=== PATIENT | male | born 1990 | race Caucasian/White ===

== ENCOUNTER 2020-08-21 12:59 | Outpatient (REF) | payer OTHER, SELFPAY ==
[2020-08-21 13:31] LABS: Eosinophils Percent Auto 0.7 % (0-4); Hematocrit 43.1 % (42-52); Hemoglobin 14.4 g/dl (14.0-18.0); Imm Gran Abs Auto 0.01 X10*3/uL (0.00-0.03); Imm Gran Pct Auto 0.4 % (0.0-0.4); Lymphocytes Absolute Auto 0.6 X10*3/uL (1.2-4.9); MANUAL DIFF FLAG SCAN; Mean Corpuscular HGB Conc 33.4 g/dl (31.0-36.0); Mean Corpuscular Hemoglobin 31.4 pg (27.0-33.0); Mean Corpuscular Volume 93.9 fL (80-98); Mean Platelet Volume 9.9 fL (9.4-12.4); Monocytes Absolute Auto 0.2 X10*3/uL (0.1-1.2); Monocytes Percent Auto 7.1 % (2-11); Neutrophils Absolute Auto 1.9 X10*3/uL (2.0-8.3); Neutrophils Percent Auto 69.8 % (45-73); Platelet Count 208 X10*3/uL (160-400); Red Blood Count 4.59 X10*6/uL (4.60-5.80); Red Cell Distribution Width 11.9 % (11.0-16.0); SCAN SMEAR FLAG 1; White Blood Count 2.7 X10*3/uL (4.8-10.8)
[2020-08-21 14:02] LABS: Alanine Aminotransferase 12 U/L (0-40); Albumin Level 4.8 g/dL (3.5-5.0); Alkaline Phosphatase 61 U/L (39-117); Anion Gap 10 (12-20); Aspartate Amino Transferase 16 U/L (5-37); Bilirubin Total 0.7 mg/dL (0.0-1.0); Blood Urea Nitrogen 11 mg/dL (9-16); Calcium 9.5 mg/dL (8.4-10.2); Carbon Dioxide 29 mmol/L (22-29); Chloride 105 mmol/L (96-108); Cholesterol 165 mg/dL; Estimated Glomerular Filt Rate > 60; Glucose Random 91 mg/dL (60-115); HDL Cholesterol 50 mg/dL; LDL Cholesterol Calculated 108 mg/dl; Potassium 4.4 mmol/l (3.3-5.1); Sodium 140 mmol/L (135-145); Total Protein 7.3 g/dL (6.5-8.0); Triglycerides 39 mg/dL
[2020-08-21 14:09] LABS: SLIDE REVIEW VERIFIED
== END 2020-08-21 13:00 | disposition home or self-care (01) ==
LOC: HO.LAB 12:59
PROVIDERS: PCP Internal Medicine; Visit Provider Internal Medicine
DX: Z00.00 Encounter for general adult medical examination without abnormal findings (principal); Z13.31 Encounter for screening for depression; F90.9 Attention-deficit hyperactivity disorder, unspecified type
CPT/HCPCS: 36415; 80053; 80061; 85025

== ENCOUNTER 2021-11-08 18:03 | Outpatient (REF) | payer OTHER, SELFPAY ==
[2021-11-08 18:52] LABS: Influenza A PCR NEGATIVE (Negative); Influenza B PCR NEGATIVE (Negative); Resp Syncy Virus RNA Qual PCR NEGATIVE (Negative); SARS COV2 PCR INHOUSE POSITIVE (Negative)
== END 2021-11-08 18:04 | disposition home or self-care (01) ==
LOC: HO.LNP 18:03
PROVIDERS: Visit Provider Physician Assistant
DX: B34.9 Viral infection, unspecified (principal); R76.8 Other specified abnormal immunological findings in serum; Z20.822 Contact with and (suspected) exposure to COVID-19
CPT/HCPCS: 0241U

== ENCOUNTER 2022-05-10 12:02 | Outpatient (REF) | payer OTHER, SELFPAY ==
[2022-05-10 12:14] LABS: MANUAL DIFF FLAG NO
[2022-05-10 13:06] LABS: Basophils Percent Auto 0.4 % (0-2); Eosinophils Absolute Auto 0.1 X10*3/uL (0.0-0.4); Eosinophils Percent Auto 1.8 % (0-4); Hematocrit 41.6 % (42.0-52.0); Imm Gran Abs Auto 0.01 X10*3/uL (0.00-0.03); Imm Gran Pct Auto 0.4 % (0.0-0.4); Mean Corpuscular HGB Conc 33.7 g/dl (31.0-36.0); Mean Corpuscular Hemoglobin 31.7 pg (27.0-33.0); Mean Corpuscular Volume 94.1 fL (80.0-98.0); Mean Platelet Volume 10.2 fL (9.4-12.4); Monocytes Absolute Auto 0.3 X10*3/uL (0.1-1.2); Monocytes Percent Auto 9.6 % (2-11); Neutrophils Absolute Auto 1.4 x10*3/uL (2.0-8.3); Neutrophils Percent Auto 50.8 % (45-73); Platelet Count 200 X10*3/uL (160-400); Red Blood Count 4.42 X10*6/uL (4.60-5.80); White Blood Count 2.8 X10*3/uL (4.8-10.8)
[2022-05-10 14:11] LABS: Thyroid Stimulating Hormone 1.35 uIU/mL (0.32-4.0)
[2022-05-10 14:42] LABS: Alanine Aminotransferase 17 U/L (0-40); Albumin Level 4.7 g/dL (3.5-5.0); Alkaline Phosphatase 59 U/L (39-117); Anion Gap 11 (12-20); Aspartate Amino Transferase 20 U/L (5-37); Bilirubin Total 0.8 mg/dL (0.0-1.0); Blood Urea Nitrogen 14 mg/dL (9-16); Calcium 9.7 mg/dL (8.4-10.2); Carbon Dioxide 28 mmol/L (22-29); Chloride 105 mmol/L (96-108); Cholesterol 162 mg/dL; Estimated Glomerular Filt Rate > 60; Glucose Random 94 mg/dL (60-115); HDL Cholesterol 55 mg/dL; LDL Cholesterol Calculated 101 mg/dl; Potassium 4.6 mmol/L (3.3-5.1); Sodium 139 mmol/L (135-145); Total Protein 7.2 g/dL (6.5-8.0); Triglycerides 33 mg/dL
== END 2022-05-10 12:03 | disposition home or self-care (01) ==
LOC: HO.LAB 12:02
PROVIDERS: PCP Internal Medicine; Visit Provider Internal Medicine
DX: B07.0 Plantar wart (principal); F90.9 Attention-deficit hyperactivity disorder, unspecified type; L84 Corns and callosities
CPT/HCPCS: 36415; 80053; 80061; 84443; 85025

== ENCOUNTER 2023-09-19 15:31 | Outpatient (REF) | payer OTHER, SELFPAY ==
[2023-09-19 15:46] LABS: MANUAL DIFF FLAG NO
[2023-09-19 16:07] LABS: Eosinophils Percent Auto 1.3 % (0-4); Hematocrit 41.2 % (42.0-52.0); Imm Gran Abs Auto 0.01 X10*3/uL (0.00-0.03); Imm Gran Pct Auto 0.3 % (0.0-0.4); Lymphocytes Absolute Auto 0.8 X10*3/uL (1.2-4.9); Lymphocytes Percent Auto 27.3 % (20-40); Mean Corpuscular Hemoglobin 31.6 pg (27.0-33.0); Mean Platelet Volume 10.1 fL (9.4-12.4); Monocytes Absolute Auto 0.2 X10*3/uL (0.1-1.2); Monocytes Percent Auto 7.5 % (2-11); Neutrophils Percent Auto 63.6 % (45-73); Platelet Count 220 X10*3/uL (160-400); Red Blood Count 4.43 X10*6/uL (4.60-5.80); Red Cell Distribution Width 11.9 % (11.0-16.0); White Blood Count 3.1 X10*3/uL (4.8-10.8)
[2023-09-19 16:38] LABS: Alanine Aminotransferase 24 U/L (0-40); Albumin Level 4.7 g/dL (3.5-5.0); Alkaline Phosphatase 62 U/L (39-117); Anion Gap 14 (12-20); Aspartate Amino Transferase 25 U/L (5-37); Bilirubin Total 0.6 mg/dL (0.0-1.0); Blood Urea Nitrogen 11 mg/dL (9-16); Calcium 9.7 mg/dL (8.4-10.2); Carbon Dioxide 26 mmol/L (22-29); Chloride 105 mmol/L (96-108); Estimated Glomerular Filt Rate > 60; Glucose Random 73 mg/dL (60-115); Potassium 3.7 mmol/L (3.3-5.1); Sodium 141 mmol/L (135-145); Total Protein 7.5 g/dL (6.5-8.0)
== END 2023-09-19 15:32 | disposition home or self-care (01) ==
LOC: HO.LAB 15:31
PROVIDERS: PCP Internal Medicine; Visit Provider Internal Medicine
DX: F90.9 Attention-deficit hyperactivity disorder, unspecified type (principal); Z20.2 Contact with and (suspected) exposure to infections with a predominantly sexual mode of transmission
CPT/HCPCS: 36415; 80053; 85025

== ENCOUNTER 2024-04-22 13:56 | Outpatient (AMB) | payer OTHER, SELFPAY ==
--- NOTE | 2024-04-22 14:02 | MHC.PC.OV ---
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 Transferring care from Dr Pereira ([address] Medical records have not been requested and have not received. Junior Legal Secretary Required: No International Trade Specialist: Not Required per policy Accompanied by: Self / Same As Patient Allergies dog and cat Allergy (Mild, Uncoded 04/22/24 14:42) sneezing, iitdching skin seasonal Allergy (Unknown, Uncoded 04/22/24 14:42) watery eyes, sneezing. 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 HPI Details Patient comes in today to establish care States that he has been on Vyvanse for ADHD since he was 21 or 22 y/o (about 12 years ago) - sees neurology/psychiatry for management of his ADHD Also relates (+) occasional migraine headaches States that he gets a migraine headache about once a year and that his vision would sometime black out for about 30 seconds when he has a migraine attack - relates that this last occurred about 3 years ago He has been seen by neurology for his headaches in the past and was just advised to track the frequency and occurrence of his symptoms and he will continue to follow up with neurology accordingly Patient states that he feels okay otherwise He denies any dizziness and reports no headaches recently Denies any chest pains, no SOB No nausea/vomiting, no abdominal pain No change in bowel habits noted [facility] Medical History (Updated 07/04/24 @ 08:53 by Feliz Caro MD) Migraine Seasonal allergies Attention deficit hyperactivity disorder (ADHD) Surgical History No pertinent past surgical history Family History Other Mental health disorder Substance use disorder Social History Housing: House Alcohol intake: current Alcohol intake frequency: a few times a month Patient Tobacco Use Status: Never used Tobacco e-Cigarette/Vaping Use: Never Used Second Hand Smoke Exposure: No service: No Current occupational status: employed 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 1. Little interest or pleasure in doing things: not at all 2. Feeling down, depressed, or hopeless: not at all 3. Trouble falling or staying asleep, or sleeping too much: not at all 4. Feeling tired or having little energy: not at all 5. Poor appetite or overeating: not at all 6. Feeling bad about yourself - or that you are a failure or have let yourself or your family down: not at all 7. Trouble concentrating on things, such as reading the newspaper or watching television: not at all 8. Moving or speaking so slowly that other people could have noticed. Or the opposite - being so fidgety or restless that you have been moving around a lot more than usual: not at all 9. Thoughts that you would be better off or of hurting yourself in some way: not at all Total score: 0 Depression Screening Interpretation: Negative Depression Screening Done: Yes 06767 - PHQ-9 Billing: Yes Source: Developed by Drs. Cole Klein, Gela Castro, Sandro Aparicio and colleagues, with an educational shweta from [employer] Thrive Questionnaire Date Thrive assessed: 04/22/24 I am a: Patient What is your living situation today?: I have a steady place to live Within the past 12 months, did the food you bought not last and you didn't have the money to get more?: Never true Within the past 12 months, did you worry whether your food would run out before you got money to buy more?: Never true Do you have trouble paying for medicines?: No Do you have trouble getting transportation to medical appointments?: No Do you have trouble paying your heating and electricity bill?: No Do you have trouble taking care of your child, family member or friend?: No Do you have trouble with day-to-day activities such as bathing, preparing meals, shopping, managing finances, etc.?: No Are you currently unemployed and looking for a job?: No Are you interested in more education?: No Currently or been in a relationship where the following occur: no concerns reported THRIVE Score: 0 AUDIT C Alcohol Use Questionnaire (AUDIT-C) 1. How often do you have a drink containing alcohol?: Monthly or less 2. How many drinks containing alcohol do you have on a typical day when you are drinking?: 1 or 2 3. How often do you have six or more drinks on one occasion?: Never Total Score: 1 Score Reviewed/Action Taken: Yes KHURRAM-7 AMB Questionnaire KHURRAM-7 Date KHURRAM - 7 assessed: 04/22/24 Feeling nervous, anxious, or on edge: 0 = Not at all Not being able to stop or control worryin = Not at all Worrying too much about different things: 0 = Not at all Trouble relaxin = Not at all Being so restless that it is hard to sit still: 0 = Not at all Becoming easily annoyed or irritable: 0 = Not at all Feeling afraid as if something awful might happen: 0 = Not at all Total KHURRAM-7 score (0-4 normal; 5-9 mild; 10-14 moderate; 15-21 severe): 0 Source: Developed by Drs. Cole Klein, Gela Castro, Sandro Aparicio and colleagues, with an educational shweta from [employer] Review of Systems Const Denies chills, Denies fever(s), Denies headache(s) (none recently) and Denies malaise ENT Denies dysphagia, Denies dizziness, Denies otalgia, Denies headache(s) (none recently), Denies neck pain, Denies odynophagia and Denies sore throat Card Denies chest pain, Denies irregular heart rhythm and Denies dyspnea Resp Denies cough, Denies dyspnea and Denies wheezing GI Denies abdominal pain, Denies change in bowel habits, Denies dysphagia, Denies nausea, Denies odynophagia and Denies vomiting Denies dysuria, Denies nocturia and Denies urinary frequency Musc Denies back pain and Denies neck pain Skin/Breast Denies rash Neuro Denies dizziness and Denies headache(s) (none recently) Psych Denies anxiety and Denies depression Aller/Immun Denies wheezing Physical exam (Primary Care) Vital Signs: Last Vital Signs Pulse 91 04/22/24 14:05 BP 132/60 04/22/24 14:05 Pulse Ox 97 04/22/24 14:05 Oxygen Delivery Method Room Air 04/22/24 14:05 BMI result Body Mass Index 26.2 Tobacco/Smoking Status: Tobacco use Status Tobacco use date assessed 04/22/24 04/22/24 14:13 Patient Tobacco Use Status Never used Tobacco 04/22/24 14:13 e-Cigarette/Vaping Use Never Used 04/22/24 14:13 PHQ-9: PHQ-9 Score PHQ-9: Total score 0 04/22/24 14:54 Depression Screening Interpretation: Negative Thrive Assessment: Date of Thrive Assessment Date Thrive assessed 04/22/24 04/22/24 14:13 Currently or been in a relationship where the following occur: no concerns reported Const General: no acute distress and alert HENMT Ears: TM's normal bilaterally and EAC's normal Throat: Yes posterior oropharynx normal and Yes tonsils normal (no TP congestion) Neck Neck: Yes no lymphadenopathy and Yes supple Resp Auscultation: clear to auscultation bilaterally, no rales and no wheezes Cardio Rate: regular rate Rhythm: regular rhythm Heart sounds: no murmurs GI Palpation (GI): Soft to palpation and nontender Auscultation: normal bowel sounds General: Yes no CVA tenderness Back/Spine/Pelvis Back: no CVA tenderness Skin Rashes: no rashes Extrem General: Yes no clubbing, cyanosis or edema Assessment and Plan Assessment & Plan (1) Migraine: Code(s): G43.909 - Migraine, unspecified, not intractable, without status migrainosus Qualifiers: Migraine type: unspecified Status migrainosus presence: without status migrainosus Intractability: not intractable Qualified Code(s): G43.909 - Migraine, unspecified, not intractable, without status migrainosus Plan: Stable lately Reinforced avoidance of any potential migraine triggers Follow up with neurology as scheduled (2) Seasonal allergies: Code(s): J30.2 - Other seasonal allergic rhinitis Plan: Continue Cetirizine 10 mg QD PRN and Aller-Karlo nasal spray BID PRN (3) Attention deficit hyperactivity disorder (ADHD): Code(s): F90.9 - Attention-deficit hyperactivity disorder, unspecified type Qualifiers: Attention deficit-hyperactivity disorder type: unspecified Qualified Code(s): F90.9 - Attention-deficit hyperactivity disorder, unspecified type Plan: Continue Vyvanse 40 mg QD Follow up with neurology/psychiatry as scheduled Plan To return in 4 months for his annual physical examination Coding Level of Care Code New Pt Level 3 (50609) Diagnoses Migraine without status migrainosus, not intractable, unspecified migraine type G43.909 Migraine type: unspecified Status migrainosus presence: without status migrainosus Intractability: not intractable Seasonal allergies J30.2 Attention deficit hyperactivity disorder (ADHD), unspecified ADHD type F90.9 Attention deficit-hyperactivity disorder type: unspecified
[2024-04-22 14:05] VITALS: BP 132/60; PULSE 91; O2SAT 97; BMI 26.2
== END 2024-04-22 14:58 | disposition home or self-care (01) ==
LOC: HO.HMGH 13:56
PROVIDERS: PCP Internal Medicine; Visit Provider Internal Medicine
DX: G43.909 Migraine, unspecified, not intractable, without status migrainosus (principal); J30.2 Other seasonal allergic rhinitis; F90.9 Attention-deficit hyperactivity disorder, unspecified type
CPT/HCPCS: 99203

== ENCOUNTER 2024-08-26 15:43 | Outpatient (AMB) | payer OTHER, SELFPAY ==
[2024-08-26 15:47] VITALS: BP 130/70; PULSE 100; O2SAT 98; BMI 26.8
--- NOTE | 2024-08-26 15:47 | MHC.PC.OV ---
Vital Signs 08/26/24 15:47 Height 5 ft 11 in Weight 192 lb 2 oz BMI 26.8 BP 130/70 Blood Pressure Location Lt brachial Position Sitting Pulse 100 Pulse Source Pulse Oximeter Pulse Oximetry (%) 98 Oxygen Delivery Method Room Air Intake Visit Reasons: pe Accompanied by: Self / Same As Patient Allergies dog and cat Allergy (Mild, Uncoded 08/26/24 16:29) sneezing, iitdching skin seasonal Allergy (Unknown, Uncoded 08/26/24 16:29) watery eyes, sneezing. Medication List - Last Reconciled 08/26/24 by Feliz Caro MD cetirizine (Zyrtec) 10 mg PO DAILY PRN lisdexamfetamine (Vyvanse) 40 mg PO DAILY 30 days triamcinolone acetonide (Aller-Karlo) 1 spray intranasal BID Tobacco use date assessed: 08/26/24 Dental Screening Dental Screen Date: 08/26/24 Did you have a dental visit in the last 12 months?: Yes Did you have a dental problem in the last 6 months where you did not have access to dental care?: No Was dental information given to patient?: Patient has dentist HPI pe HPI Details Patient comes in today for his annual physical examination States that he feels okay He denies any headaches or dizziness Denies any chest pains, no SOB No nausea/vomiting, no abdominal pain No change in bowel habits noted but reports that he has been experiencing recurrent flare up of his hemorrhoids over the past few weeks now and sometimes feel like there is a tear over one of his hemorrhoids, with (+) pain and some blood in his stool at times He denies any acute urinary symptoms Adds that he has several skin lesions/moles and has a couple of slightly larger ones on the back of his neck - states that these have not really changed in size or appearance but is wondering if he should get these checked due to him having a number of these scattered all over He would also like to get his tetanus booster updated - thinks that it has been over 10 years now since he had his tetanus shot [facility] Medical History Overweight (BMI 25.0-29.9) Migraine Seasonal allergies Attention deficit hyperactivity disorder (ADHD) Surgical History No pertinent past surgical history Family History Other Mental health disorder Substance use disorder Social History Housing: House Alcohol intake: current Alcohol intake frequency: a few times a month Patient Tobacco Use Status: Never used Tobacco e-Cigarette/Vaping Use: Never Used Second Hand Smoke Exposure: No service: No Current occupational status: employed 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 1. Little interest or pleasure in doing things: not at all 2. Feeling down, depressed, or hopeless: not at all 3. Trouble falling or staying asleep, or sleeping too much: not at all 4. Feeling tired or having little energy: several days 5. Poor appetite or overeating: not at all 6. Feeling bad about yourself - or that you are a failure or have let yourself or your family down: not at all 7. Trouble concentrating on things, such as reading the newspaper or watching television: not at all 8. Moving or speaking so slowly that other people could have noticed. Or the opposite - being so fidgety or restless that you have been moving around a lot more than usual: not at all 9. Thoughts that you would be better off or of hurting yourself in some way: not at all Total score: 1 Depression Screening Interpretation: Negative Depression Screening Done: Yes 15306 - PHQ-9 Billing: Yes Source: Developed by Drs. Cole Klein, Gela Castro, Sandro Aparicio and colleagues, with an educational shweta from [employer]. Thrive Questionnaire Date Thrive assessed: 08/26/24 I am a: Patient What is your living situation today?: I have a steady place to live Within the past 12 months, did the food you bought not last and you didn't have the money to get more?: Never true Within the past 12 months, did you worry whether your food would run out before you got money to buy more?: Never true Do you have trouble paying for medicines?: No Do you have trouble getting transportation to medical appointments?: No Do you have trouble paying your heating and electricity bill?: No Do you have trouble taking care of your child, family member or friend?: No Do you have trouble with day-to-day activities such as bathing, preparing meals, shopping, managing finances, etc.?: No Are you currently unemployed and looking for a job?: No Are you interested in more education?: No Please select the resources that you would like help with: None Currently or been in a relationship where the following occur: No concerns reported THRIVE Score: 0 AUDIT C Alcohol Use Questionnaire (AUDIT-C) 1. How often do you have a drink containing alcohol?: Monthly or less 2. How many drinks containing alcohol do you have on a typical day when you are drinking?: 1 or 2 3. How often do you have six or more drinks on one occasion?: Never Total Score: 1 Score Reviewed/Action Taken: Yes KHURRAM-7 AMB Questionnaire KHURRAM-7 Date KHURRAM - 7 assessed: 08/26/24 Feeling nervous, anxious, or on edge: 1 = Several days Not being able to stop or control worryin = Not at all Worrying too much about different things: 0 = Not at all Trouble relaxin = Not at all Being so restless that it is hard to sit still: 0 = Not at all Becoming easily annoyed or irritable: 0 = Not at all Feeling afraid as if something awful might happen: 0 = Not at all Total KHURRAM-7 score (0-4 normal; 5-9 mild; 10-14 moderate; 15-21 severe): 1 Source: Developed by Drs. Cole Klein, Gela Castro, Sandro Aparicio and colleagues, with an educational shweta from [employer]. Review of Systems Const Denies chills, Denies fatigue, Denies fever(s), Denies headache(s), Denies malaise and Denies weakness Eyes Denies blurry vision, Denies change in vision, Denies irritation and Denies itchy eyes ENT Denies dysphagia, Denies dizziness, Denies otalgia, Denies headache(s), Denies nasal congestion, Denies neck pain, Denies odynophagia and Denies sore throat Card Denies chest pain, Denies rapid heart rate, Denies irregular heart rhythm, Denies palpitations and Denies dyspnea Resp Denies chest congestion, Denies cough, Denies dyspnea and Denies wheezing GI Details: (+) recurrent flare ups of his hemorrhoids lately - see HPI Denies abdominal pain, Denies bloating, Reports hematochezia (at times, when his hemorrhoids flare up), Denies change in bowel habits, Denies change in stool character, Denies constipation, Denies dysphagia, Denies heartburn, Denies diarrhea, Denies nausea, Denies odynophagia and Denies vomiting Denies hematuria, Denies difficulty urinating, Denies dysuria, Denies urinary frequency and Denies urinary urgency Musc Denies back pain, Denies arthralgias, Denies joint swelling, Denies muscle weakness and Denies neck pain Skin/Breast Denies change in pigmentation, Reports lesions ((+) multiple skin lesions/moles - see HPI), Denies rash and Denies unusual bruising Neuro Denies dizziness, Denies headache(s), Denies paresthesias and Denies weakness Psych Denies difficulty concentrating (Rx helps a lot) Endo Denies fatigue and Denies palpitations Aller/Immun Denies itchy eyes and Denies wheezing Physical exam (Primary Care) Vital Signs: Last Vital Signs Pulse 100 08/26/24 15:47 BP 130/70 08/26/24 15:47 Pulse Ox 98 08/26/24 15:47 Oxygen Delivery Method Room Air 08/26/24 15:47 BMI result Body Mass Index 26.8 Tobacco/Smoking Status: Tobacco use Status Tobacco use date assessed 08/26/24 08/26/24 15:51 Patient Tobacco Use Status Never used Tobacco 08/26/24 15:51 e-Cigarette/Vaping Use Never Used 08/26/24 15:51 PHQ-9: PHQ-9 Score PHQ-9: Total score 1 08/26/24 16:37 Depression Screening Interpretation: Negative Thrive Assessment: Date of Thrive Assessment Date Thrive assessed 08/26/24 08/26/24 15:51 Currently or been in a relationship where the following occur: No concerns reported Const General: no acute distress, alert and awake Orientation/consciousness: patient oriented x3 HENMT Head: Yes normocephalic and Yes atraumatic Ears: external ears normal, TM's normal bilaterally and EAC's normal General nose exam: No nasal discharge present Face and sinus: Yes normal facial exam and Yes sinuses nontender Teeth and gingiva: dentition normal Throat: Yes posterior oropharynx normal and Yes tonsils normal (no TP congestion) Eyes Eyelids: Yes eyelids normal Conjunctivae: conjunctivae normal Pupils: Equal, round and reactive pupils present EOM: EOMs intact bilaterally Neck Neck: Yes no lymphadenopathy and Yes supple Thyroid: Thyroid normal Resp Auscultation: clear to auscultation bilaterally, no rales and no wheezes Cardio Rate: regular rate Rhythm: regular rhythm Heart sounds: no murmurs GI Palpation (GI): Soft to palpation, nontender and No hepatosplenomegaly present Auscultation: normal bowel sounds General: Yes no CVA tenderness Back/Spine/Pelvis Back: no CVA tenderness Thoracic/Lumbar Spine: thoracic and lumbar spine normal to inspection Skin Other: (+) scattered multiple small flat hyperpigmented lesions/moles, with no concerning features at present Rashes: no rashes Neuro General: patient oriented x3, moves all extremities, no focal motor deficits and CN's II-XI intact bilaterally Cranial nerves: Yes Equal, round and reactive pupils present Cognition (Neuro): normal cognition Gait exam (Neuro): Normal gait present Extrem General: Yes no clubbing, cyanosis or edema Office Procedures Flu Questionnaire Does the patient have a severe egg allergy?: No Immunizations Fluarix Triv [id number] (PF) 45 mcg (15 mcg x 3)/0.5 mL IM syringe Performing Provider: Feliz Caro MD Performing Location: [facility] Documented (not given) by: CLAUDIA Obregon on 08/26/24 16:38 Reason Not Given: Patient Refused tetanus-diphtheria toxoids-Td 2 Lf unit-2 Lf unit/0.5 mL IM suspension Performing Provider: Feliz Caro MD Performing Location: [facility] Administered by: CLAUDIA Obregon on 08/26/24 16:52 Dose Route Admin Location Dispensed Lot Number Expiration Date [facility] [employer] 0.5 mL IM Left Deltoid 0.5 mL [id number] 12/16/24 [id number] [employer] VIS Given Date VIS Provided VIS Publication Date 08/26/24 Single Vaccine 21 Eligibility Eligibility Date Funding Source Not [facility] Eligible 08/26/24 [facility] funds Coding Level of Care Code Est Pt Prev Care 18-39y([id number]) Diagnoses Annual physical exam Z00.00 Migraine without status migrainosus, not intractable, unspecified migraine type G43.909 Intractability: not intractable Migraine type: unspecified Status migrainosus presence: without status migrainosus Seasonal allergies J30.2 Attention deficit hyperactivity disorder (ADHD), unspecified ADHD type F90.9 Attention deficit-hyperactivity disorder type: unspecified Numerous skin moles D22.9 Hemorrhoids, external K64.4 Overweight (BMI 25.0-29.9) E66.3 Assessment & Plan Assessment & Plan (1) Annual physical exam: Code(s): Z00.00 - Encounter for general adult medical examination without abnormal findings Category: Medical Plan: Check labs (2) Migraine: Code(s): G43.909 - Migraine, unspecified, not intractable, without status migrainosus Category: Medical Qualifiers: Intractability: not intractable Migraine type: unspecified Status migrainosus presence: without status migrainosus Qualified Code(s): G43.909 - Migraine, unspecified, not intractable, without status migrainosus Plan: Stable Reinforced avoidance of any potential migraine triggers Follow up with neurology as scheduled (3) Seasonal allergies: Code(s): J30.2 - Other seasonal allergic rhinitis Category: Medical Plan: Continue Cetirizine 10 mg QD PRN and Aller-Karlo nasal spray BID PRN States that he has a pet dog and has no plans to get rid of it even though he is allergic supposedly to dogs (4) Attention deficit hyperactivity disorder (ADHD): Code(s): F90.9 - Attention-deficit hyperactivity disorder, unspecified type Category: Medical Qualifiers: Attention deficit-hyperactivity disorder type: unspecified Qualified Code(s): F90.9 - Attention-deficit hyperactivity disorder, unspecified type Plan: Continue Vyvanse 40 mg QD Follow up with neurology/psychiatry as scheduled (5) Numerous skin moles: Code(s): D22.9 - Melanocytic nevi, unspecified Category: Medical Plan: Will refer him to dermatology for further evaluation and management/ skin check (6) Hemorrhoids, external: Code(s): K64.4 - Residual hemorrhoidal skin tags Category: Medical Plan: Will refer him to surgery for further evaluation and recommendations regarding his hemorrhoids (7) Overweight (BMI 25.0-29.9): Code(s): E66.3 - Overweight Category: Medical Plan: Reinforced diet/exercise as tolerated/lose weight Plan Follow up in 6 months Orders: Orders TSH reflex Free T4 Today E78.00 - Pure hypercholesterolemia, unspecified, Z00.00 - Encounter for general adult medical examination without abnormal findings Vitamin D 25-OH Total Today E55.9 - Vitamin D deficiency, unspecified, Z00.00 - Encounter for general adult medical examination without abnormal findings Influenza [id number] Immunization Today Z23 - Encounter for immunization Complete Blood Count Auto Diff Today D64.9 - Anemia, unspecified, Z00.00 - Encounter for general adult medical examination without abnormal findings Comprehensive [place]. Panel Fast Today E78.00 - Pure hypercholesterolemia, unspecified, Z00.00 - Encounter for general adult medical examination without abnormal findings Lipid Panel Today E78.00 - Pure hypercholesterolemia, unspecified, Z00.00 - Encounter for general adult medical examination without abnormal findings UA CC w/rflx Micro + Cult Today R30.0 - Dysuria, Z00.00 - Encounter for general adult medical examination without abnormal findings Referrals Dermatology Referral D22.9 - Melanocytic nevi, unspecified General Surgery Referral K64.4 - Residual hemorrhoidal skin tags
== END 2024-08-26 16:53 | disposition home or self-care (01) ==
PROVIDERS: PCP Internal Medicine; Visit Provider Internal Medicine
DX: Z00.00 Encounter for general adult medical examination without abnormal findings (principal); G43.909 Migraine, unspecified, not intractable, without status migrainosus; J30.2 Other seasonal allergic rhinitis; F90.9 Attention-deficit hyperactivity disorder, unspecified type; D22.9 Melanocytic nevi, unspecified; K64.4 Residual hemorrhoidal skin tags; E66.3 Overweight; Z23 Encounter for immunization

== ENCOUNTER → 2024-08-26 15:43 | Outpatient (BNVA) | payer OTHER, SELFPAY | PROVIDERS: PCP Internal Medicine; Visit Provider Internal Medicine | DX: Z00.01 Encounter for general adult medical examination with abnormal findings (principal); G43.909 Migraine, unspecified, not intractable, without status migrainosus; J30.2 Other seasonal allergic rhinitis; F90.9 Attention-deficit hyperactivity disorder, unspecified type; D22.9 Melanocytic nevi, unspecified; K64.4 Residual hemorrhoidal skin tags; E66.3 Overweight; Z68.26 Body mass index [BMI] 26.0-26.9, adult; Z79.899 Other long term (current) drug therapy; Z28.21 Immunization not carried out because of patient refusal | CPT/HCPCS: 90471; 90714; 96127 ==

== ENCOUNTER 2024-09-05 15:37 | Outpatient (AMB) | payer OTHER, SELFPAY ==
--- NOTE | 2024-09-05 15:41 | MHC.OFFVIS ---
Vital Signs 09/05/24 15:45 Height 5 ft 11 in Weight 191 lb BMI 26.6 Intake Visit Reasons: Residual hemorrhoidal skin tags Intake Note: This patient presents for Residual hemorrhoidal skin tags. Pt c/o; reports pain, reports some rectal bleeding. Harness Racing Handicapper Required: No Accompanied by: Self / Same As Patient Allergies dog and cat Allergy (Mild, Uncoded 09/05/24 15:46) sneezing, iitdching skin seasonal Allergy (Unknown, Uncoded 09/05/24 15:46) watery eyes, sneezing. Medication List - Last Reconciled 09/05/24 by Evgeny King MD cetirizine (Zyrtec) 10 mg PO DAILY PRN lisdexamfetamine (Vyvanse) 40 mg PO DAILY 30 days triamcinolone acetonide (Aller-Karlo) 1 spray intranasal BID HPI HPI Residual hemorrhoidal skin tags: Details: 34-year-old male referred for hemorrhoid issues. He describes having periodic pain and bleeding. He describes the bleeding as bright blood per rectum seen as drops in the toilet bowl as well as on wiping. He says that these symptoms have been going on for about 6 months. He says he is mostly happen with bowel movements although this does not happen all the time. He says that he was concerned about these because his uncle was diagnosed to have colon cancer at age of 58. 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 Cognitive needs: No Hearing needs: No Vision needs: Yes (Glasses) Review of Systems Const Denies chills and Denies fever(s) Card Denies chest pain, Denies dyspnea and Denies dyspnea on exertion Resp Denies cough, Denies dyspnea and Denies dyspnea on exertion GI Reports hematochezia and Denies change in bowel habits Denies hematuria and Denies difficulty urinating Musc Denies back pain and Denies limited range of motion Neuro Denies focal weakness and Denies convulsions Psych Denies depression and Denies mood swings Physical Exam Const General: comfortable and no acute distress Orientation/consciousness: patient oriented x3 Neck Neck: Yes no lymphadenopathy Resp Auscultation: clear to auscultation bilaterally Cardio Rhythm: regular rhythm GI Other: External hemorrhoids on the left and right side, no perianal lesions Palpation (GI): Soft to palpation, nontender and no guarding Neuro General: patient oriented x3 Office Procedures Anoscopy He UTI was in kay-knife position. The anoscope was gently inserted. A full examination of the anal canal was done. He had mostly external hemorrhoids on both the left and right side. There were no other lesions seen. There was no fissure ulceration. There was no induration. There was no bleeding. [id number] Assessment & Plan Assessment & Plan (1) Bleeding hemorrhoids: Code(s): K64.9 - Unspecified hemorrhoids Category: Medical Plan: He has moderate-sized hemorrhoids. He describes periodic bleeding seen as bright blood on the toilet as well as on wiping. He describes occasional swelling and pain I had a long discussion with him of the option of proceeding with hemorrhoidectomy. I discussed the technique of this procedure. I reviewed the risks including but not limited to bleeding, infections, postop pain, as well as the benefits and alternatives. I explained to him what to expect postoperatively He says he understands. He says that he does not feel that he has hemorrhoids symptoms are that severe at this time and he wants to hold off on proceeding with hemorrhoidectomy. I told him that he can follow up in the office down the line to be re-evaluated if he has worsening symptoms. He was advised him on avoiding straining and constipation. Coding Level of Care Code New Pt Level 3 (48728) Diagnoses Bleeding hemorrhoids K64.9 CPT Codes Details - CPT: 34419-[id number] ([id number])
[2024-09-05 15:45] VITALS: BMI 26.6
== END 2024-09-05 15:58 | disposition home or self-care (01) ==
LOC: HO.HGS 15:38
PROVIDERS: PCP Internal Medicine; Visit Provider Surgery
DX: K64.9 Unspecified hemorrhoids (principal)
CPT/HCPCS: 46600; 99203

== ENCOUNTER → 2024-09-05 15:37 | Outpatient (BNVA) | payer OTHER, SELFPAY | PROVIDERS: PCP Internal Medicine; Visit Provider Surgery | DX: K64.4 Residual hemorrhoidal skin tags (principal) | CPT/HCPCS: 46600 ==

== ENCOUNTER 2025-02-21 10:17 | Outpatient (REF) | payer OTHER, SELFPAY ==
[2025-02-21 10:31] LABS: MANUAL DIFF FLAG NO
[2025-02-21 10:55] LABS: Basophils Percent Auto 0.4 % (0-2); Eosinophils Absolute Auto 0.1 X10*3/uL (0.0-0.4); Eosinophils Percent Auto 2.2 % (0-4); Hematocrit 41.3 % (42.0-52.0); Hemoglobin 14.3 g/dl (14.0-18.0); Lymphocytes Absolute Auto 0.9 X10*3/uL (1.2-4.9); Lymphocytes Percent Auto 33.5 % (20-40); Mean Corpuscular HGB Conc 34.6 g/dl (31.0-36.0); Mean Corpuscular Hemoglobin 32.1 pg (27.0-33.0); Mean Corpuscular Volume 92.8 fL (80.0-98.0); Mean Platelet Volume 9.6 fL (9.4-12.4); Monocytes Absolute Auto 0.2 X10*3/uL (0.1-1.2); Monocytes Percent Auto 7.4 % (2-11); Neutrophils Absolute Auto 1.5 x10*3/uL (2.0-8.3); Neutrophils Percent Auto 56.5 % (45-73); Platelet Count 214 X10*3/uL (160-400); Red Blood Count 4.45 X10*6/uL (4.60-5.80); White Blood Count 2.7 X10*3/uL (4.8-10.8)
--- OUTSIDE RECORDS SUMMARY | 2025-02-21 11:09 | XMS_ITS ---
Author Name [facility] Organization Unknown History of Medication Use Medication Directions Dispensed Refills Start Date End Date Stat lisdexamfetamine (Vyvanse) 60 MG capsule Vyvanse 60 MG Oral Capsule TAKE 1 CAPSULE DAILY ; Start Date: 05/23/2013; End Date: 05/23/2013 active Problems Problem Status Onset Date Problem Type Date of Resoluti on Source Nausea and vomiting, unspecified vomiting type active EncounterDiagnosisAct [facility] Syncope, unspecified syncope type active EncounterDiagnosisAct [facility] Bradycardia active EncounterDiagnosisAct [facility] Immunizations Vaccine Date Source Lot Number Status MMR 05/03/1990 CCT completed Typhoid Inactivated 11/28/2011 [facility] [id number] compl eted Hepatitis A 11/28/2011 [facility] [id number] completed MMR 04/04/2001 CCT completed DT 09/06/1994 CCT completed Influenza (AFLURIA/FLUZONE) Inactivated/Split Quadrivalent with Preservative IM 07/25/2013 [facility] [id number] completed Meningococcal MCV4P (Menactra) 03/07/2005 [facility] completed Encounters Encounter Type Encounter Reason Primary Diagnosis Location Date Ambulatory Nausea/Vomiting Nausea/Vomiting [facility] 11/06/2024 Care Team Organization Name Specialty Phone Email Start Date End Da te B[facility]bles 11/11/2024 01/22/2025 [facility] 11/06/2024
--- OUTSIDE RECORDS SUMMARY | 2025-02-21 11:09 | XMS_ITS | Clinical Summary ---
Author Organization [facility] Address [address] [place] [address] Care Team Providers Care Bending Shed Worker Name Role Phone Pcp, No Primary Care Provider Unavailabl e Allergies No known active allergies Medications lisdexamfetamine (Vyvanse) 60 MG capsule Vyvanse 60 MG Oral Capsule TAKE 1 CAPSULE DAILY ; Start Date: 05/23/2013; End Date: 05/23/2013 Active proMETHAZINE (PHENERGAN) 6.25 mg/5 mL oral solutionIndicati ons:Nausea and vomiting, unspecified vomiting type Take 5 mL (6.25 mg total) by mouth 4 times daily (every 6 hours) as needed for nausea or vomiting. 120 mL 11/06/2024 Active Active Problems No known active problems Immunizations Immunization Administration Dates Next Due DT 09/06/1994 Hepatitis A 11/28/2011 Influenza (AFLURIA/FLUZONE) Inactivated/Split Quadrivalent with Preservative IM 07/25/2013 Influenza Inactivated/Split Preservative Free IM 11/03/2014 MMR 04/04/2001,05/03/1990 Meningococcal MCV4P (Menactra) 03/07/2005 Typhoid Inactivated 11/28/2011 Social History Tobacco Use Types Packs/Day Years Used Date Smoking Tobacco: Never Assessed Sex and Gender Information Value Date Recorded Sex Assigned at Not on file Legal Sex Male 12:04 AM EDT Gender Identity Not on file Sexual Orientation Not on file Last Filed Vital Signs Vital Sign Reading Time Taken Comments Blood Pressure 105/63 11/06/2024 10:34 AM EST Pulse 57 11/06/2024 10:34 AM EST Temperature 36.4 ??C (97.5 ??F) 11/06/2024 10:[address] Respiratory Rate 16 11/06/2024 10:34 AM EST Oxygen Saturation 98% 11/06/2024 10:34 AM EST Inhaled Oxygen Concentration - - Weight 75.3 kg (166 lb 0.1 oz) 05/02/2014 1:03 P M EDT Height 180.3 cm (5' 11 ) 05/02/2014 1:03 PM EDT Body Mass Index 23.15 05/02/2014 1:03 PM EDT Plan of Treatment Health Maintenance Due Date Last Done Comments Hepatitis C Virus Screening 1989 HIV Screening 2002 DTaP/Tdap/Td Vaccines (2 - Tdap) 01/16/2008 09/06/1994 Hepatitis B Vaccines (1 of 3 - 19+ 3-dose series) 01/16/2008 Influenza Vaccine 06/06/2024 11/03/2014, 07/25/2013 COVID-19 Vaccine (2023-2 5 season) 2024 HPV Vaccines Aged Out No longer eligi ble based on patient's age to complete this topic Pneumococcal Vaccine: Pediatric (0-5 Years) and At-Risk Patients (6 to 49 Years) Aged Out No longer eligible b ased on patient's age to complete this topic Insurance [facility] Care Teams Bending Shed Worker Relationship Specialty Start Date End Date Pcp, No PCP - General General Medicine 09/29/24
--- OUTSIDE RECORDS SUMMARY | 2025-02-21 11:09 | XMS_ITS | Encounter Summary ---
Author Organization [facility] Address [address] [place] [address] Care Team Providers Care Foreman Shipping Department Name Role Phone Pcp, No Primary Care Provider Unavailabl e Encounter Details Date Type Department Care Team (Late st Contact Info) Description 11/06/2024 Scanned Document [address] [place] [address] [phone] Provider, Generic Social History Tobacco Use Types Packs/Day Years Used Date Smoking Tobacco: Never Assessed Sex and Gender Information Value Date Recorded Sex Assigned at Not on file Legal Sex Male 12:04 AM EDT Gender Identity Not on file Sexual Orientation Not on file documented as of this encounter Plan of Treatment Not on file documented as of this encounter Visit Diagnoses Not on filedocumented in this encounter Care Teams Foreman Shipping Department Relationship Specialty Start Date End Date Pcp, No PCP - General General Medicine 09/29/24 documented as of this encounter
[2025-02-21 11:12] LABS: Appearance Urine Clear; Color Urine Yellow; Glucose Urine UA Negative (Negative); Leukocyte Esterase Urine Trace (Negative); Nitrite Urine Negative (Negative); Specific Gravity - Urine 1.015 (1.005-1.025); UMIC TRIGGER UACC YES; Urine Blood Negative (Negative); Urine Ketones Negative (Negative); Urine Protein Negative (Neg-Trace)
[2025-02-21 11:16] LABS: Bacteria Urine None Seen (None Seen); Hyaline Casts Urine 0-2 /LPF (0-2); RBC Urine 0-2 /HPF (0-2); Squamous Epithelial Cell Urine 0-2 /HPF (0-2); WBC Urine 0-5 /HPF (0-5)
[2025-02-21 11:24] LABS: Alanine Aminotransferase 19 U/L (0-40); Albumin Level 4.6 g/dL (3.5-5.0); Anion Gap 10 (12-20); Aspartate Amino Transferase 21 U/L (5-37); Bilirubin Total 0.9 mg/dL (0.0-1.0); Blood Urea Nitrogen 11 mg/dL (9-16); Calcium 9.9 mg/dL (8.4-10.2); Carbon Dioxide 29 mmol/L (22-29); Chloride 105 mmol/L (96-108); Cholesterol 170 mg/dL (<200); Estimated Glomerular Filt Rate > 60; Glucose Fasting 91 mg/dL (60-99); HDL Cholesterol 52 mg/dL (>40); LDL Cholesterol Calculated 111 mg/dL (<100); Potassium 4.6 mmol/L (3.3-5.1); Sodium 139 mmol/L (135-145); Total Protein 7.3 g/dL (6.5-8.0); Triglycerides 39 mg/dL (<150)
[2025-02-21 11:52] LABS: TSH reflex Free T4 1.15 uIU/mL (0.32-4.0); Vitamin D 25-OH Total 70.9 ng/mL (>30)
[2025-02-21 19:39] LABS: Alkaline Phosphatase 61 U/L (39-117)
== END 2025-02-21 10:18 | disposition home or self-care (01) ==
LOC: HO.LAB 10:17
PROVIDERS: PCP Internal Medicine; Visit Provider Internal Medicine
DX: Z00.00 Encounter for general adult medical examination without abnormal findings (principal); E78.00 Pure hypercholesterolemia, unspecified; E55.9 Vitamin D deficiency, unspecified; D64.9 Anemia, unspecified
CPT/HCPCS: 36415; 80053; 80061; 81001; 81003; 82306; 84443; 85025

== ENCOUNTER 2025-02-24 15:30 | Outpatient (AMB) | payer OTHER, SELFPAY ==
[2025-02-24 15:32] VITALS: BP 122/74; PULSE 86; O2SAT 99; BMI 26.4
--- NOTE | 2025-02-24 15:32 | A.OFFPC_ITS ---
Vital Signs 02/24/25 15:32 Height 5 ft 11 in Weight 189 lb 2 oz BMI 26.4 BP 122/74 Blood Pressure Location Lt brachial Position Sitting Pulse 86 Pulse Source Pulse Oximeter Pulse Oximetry (%) 99 Oxygen Delivery Method Room Air Intake Visit Reasons: ADHD, allergies, hemorrhoids Cdl Flatbed Truck Driver Required: No Accompanied by: Self / Same As Patient Allergies dog and cat Allergy (Mild, Uncoded 02/24/25 16:13) sneezing, iitdching skin seasonal Allergy (Unknown, Uncoded 02/24/25 16:13) watery eyes, sneezing. Medication List - Last Reconciled 02/24/25 by Feliz Caro MD cetirizine (Zyrtec) 10 mg PO DAILY PRN lisdexamfetamine (Vyvanse) 40 mg PO DAILY 30 days triamcinolone acetonide (Aller-Karlo) 1 spray intranasal BID Tobacco use date assessed: 02/24/25 Dental Screening Dental Screen Date: 02/24/25 Did you have a dental visit in the last 12 months?: Yes Did you have a dental problem in the last 6 months where you did not have access to dental care?: No Was dental information given to patient?: Patient has dentist HPI ADHD, allergies, hemorrhoids HPI Details Patient comes in today for his follow up visit States that he has been experiencing on and off numbness over the proximal dorsal aspect of his left foot and over his distal left leg anteriorly for a while now Notes that his left leg and foot feels 'weak' and that the symptoms feel worse when he is walking He denies any recent injury or trauma to his left leg or foot States that he feels okay otherwise He denies any headaches or dizziness Denies any chest pains, no shortness of breath No nausea/vomiting, no abdominal pain No change in bowel habits noted He had his follow-up labs done a few days ago - to discuss his results [facility] Medical History Bleeding hemorrhoids Overweight (BMI 25.0-29.9) Migraine Seasonal allergies Attention deficit hyperactivity disorder (ADHD) Surgical History No pertinent past surgical history Family History Other Mental health disorder Substance use disorder Social History Housing: House Alcohol intake: current Alcohol intake frequency: a few times a month Patient Tobacco Use Status: Never used Tobacco e-Cigarette/Vaping Use: Never Used Second Hand Smoke Exposure: No service: No Current occupational status: employed 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 1. Little interest or pleasure in doing things: not at all 2. Feeling down, depressed, or hopeless: not at all 3. Trouble falling or staying asleep, or sleeping too much: not at all 4. Feeling tired or having little energy: several days 5. Poor appetite or overeating: not at all 6. Feeling bad about yourself - or that you are a failure or have let yourself or your family down: not at all 7. Trouble concentrating on things, such as reading the newspaper or watching television: not at all 8. Moving or speaking so slowly that other people could have noticed. Or the opposite - being so fidgety or restless that you have been moving around a lot more than usual: not at all 9. Thoughts that you would be better off or of hurting yourself in some way: not at all Total score: 1 Depression Screening Interpretation: Negative Depression Screening Done: Yes 39977 - PHQ-9 Billing: Yes Source: Developed by Drs. Cole Klein, Gela Castro, Sandro Aparicio and colleagues, with an educational shweta from [employer]. Thrive Questionnaire Date Thrive assessed: 02/24/25 I am a: Patient What is your living situation today?: I have a steady place to live Within the past 12 months, did the food you bought not last and you didn't have the money to get more?: Never true Within the past 12 months, did you worry whether your food would run out before you got money to buy more?: Never true Do you have trouble paying for medicines?: No Do you have trouble getting transportation to medical appointments?: No Do you have trouble paying your heating and electricity bill?: No Do you have trouble taking care of your child, family member or friend?: No Do you have trouble with day-to-day activities such as bathing, preparing meals, shopping, managing finances, etc.?: No Are you currently unemployed and looking for a job?: No Are you interested in more education?: No Please select the resources that you would like help with: None Currently or been in a relationship where the following occur: No concerns reported THRIVE Score: 0 AUDIT C Alcohol Use Questionnaire (AUDIT-C) 1. How often do you have a drink containing alcohol?: Monthly or less 2. How many drinks containing alcohol do you have on a typical day when you are drinking?: 1 or 2 3. How often do you have six or more drinks on one occasion?: Never Total Score: 1 Score Reviewed/Action Taken: Yes KHURRAM-7 AMB Questionnaire KHURRAM-7 Date KHURRAM - 7 assessed: 02/24/25 Feeling nervous, anxious, or on edge: 1 = Several days Not being able to stop or control worryin = Not at all Worrying too much about different things: 0 = Not at all Trouble relaxin = Not at all Being so restless that it is hard to sit still: 0 = Not at all Becoming easily annoyed or irritable: 0 = Not at all Feeling afraid as if something awful might happen: 0 = Not at all Total KHURRAM-7 score (0-4 normal; 5-9 mild; 10-14 moderate; 15-21 severe): 1 Source: Developed by Drs. Cole Klein, Gela Castro, Sandro Aparicio and colleagues, with an educational shweta from [employer]. Review of Systems Const Denies chills, Denies fatigue, Denies fever(s) and Denies headache(s) ENT Denies dysphagia, Denies dizziness, Denies otalgia, Denies headache(s), Denies neck pain, Denies odynophagia and Denies sore throat Card Denies chest pain, Denies irregular heart rhythm, Denies palpitations and Denies dyspnea Resp Denies chest congestion, Denies cough and Denies dyspnea GI Denies abdominal pain, Denies constipation, Denies dysphagia, Denies heartburn, Denies diarrhea, Denies nausea, Denies odynophagia and Denies vomiting Denies difficulty urinating, Denies dysuria and Denies urinary frequency Musc Reports as per HPI, Denies back pain, Denies arthralgias and Denies neck pain Skin/Breast Denies rash Neuro Denies dizziness, Denies headache(s) and Denies paresthesias Psych Denies difficulty concentrating (Rx helps a lot) Endo Denies fatigue and Denies palpitations Physical exam (Primary Care) Vital Signs: Last Vital Signs Pulse 86 02/24/25 15:32 BP 122/74 02/24/25 15:32 Pulse Ox 99 02/24/25 15:32 Oxygen Delivery Method Room Air 02/24/25 15:32 BMI result Body Mass Index 26.4 Tobacco/Smoking Status: Tobacco use Status Tobacco use date assessed 02/24/25 02/24/25 15:39 Patient Tobacco Use Status Never used Tobacco 02/24/25 15:39 e-Cigarette/Vaping Use Never Used 02/24/25 15:39 PHQ-9: PHQ-9 Score PHQ-9: Total score 1 02/24/25 16:17 Depression Screening Interpretation: Negative Thrive Assessment: Date of Thrive Assessment Date Thrive assessed 02/24/25 02/24/25 15:39 Currently or been in a relationship where the following occur: No concerns reported Const General: no acute distress and alert HENMT Throat: Yes posterior oropharynx normal and Yes tonsils normal (no TP congestion) Neck Neck: Yes no lymphadenopathy and Yes supple Thyroid: Thyroid normal Resp Auscultation: clear to auscultation bilaterally, no rales and no wheezes Cardio Rate: regular rate Rhythm: regular rhythm Heart sounds: no murmurs GI Palpation (GI): Soft to palpation and nontender Auscultation: normal bowel sounds General: Yes no CVA tenderness Back/Spine/Pelvis Back: no CVA tenderness Thoracic/Lumbar Spine: thoracic and lumbar spine normal to inspection Skin Rashes: no rashes Extrem Other: (+) minimal discomfort on deep palpation over the dorsum of the left foot General: Yes no clubbing, cyanosis or edema Results Reviewed Results Reviewed: Laboratory Tests 02/21/25 02/21/25 10:29 10:30 WBC 2.7 L Hgb 14.3 Hct 41.3 L Plt Count 214 Sodium 139 Potassium 4.6 Creatinine 0.78 Estimated GFR > 60 Fasting Glucose 91 Calcium 9.9 AST 21 ALT 19 Triglycerides 39 Cholesterol 170 LDL Cholesterol, Calc 111 H HDL Cholesterol 52 25-OH Vitamin D Total 70.9 TSH 1.15 Ur Specific Maybee 1.015 Urine Protein Negative Urine Glucose (UA) Negative Urine Blood Negative Urine Nitrite Negative Ur Leukocyte Esterase Trace H Coding Level of Care Code Est Pt Level 4 (90842) Diagnoses Left foot pain M79.672 Migraine without status migrainosus, not intractable, unspecified migraine type G43.909 Migraine type: unspecified Status migrainosus presence: without status migrainosus Intractability: not intractable Seasonal allergies J30.2 Attention deficit hyperactivity disorder (ADHD), unspecified ADHD type F90.9 Attention deficit-hyperactivity disorder type: unspecified Hemorrhoids, external K64.4 Overweight (BMI 25.0-29.9) E66.3 Additional Codes PHQ-9 - 81700 - PHQ-9 Billing: Yes ([id number]) Assessment & Plan Assessment & Plan (1) Left foot pain: Code(s): M79.672 - Pain in left foot Category: Medical Plan: Will send patient for x-rays of the left foot for further evaluation (2) Migraine: Code(s): G43.909 - Migraine, unspecified, not intractable, without status migrainosus Category: Medical Qualifiers: Migraine type: unspecified Status migrainosus presence: without status migrainosus Intractability: not intractable Qualified Code(s): G43.909 - Migraine, unspecified, not intractable, without status migrainosus Plan: Stable/controlled Reinforced avoidance of any potential migraine triggers Follow up with neurology as scheduled (3) Seasonal allergies: Code(s): J30.2 - Other seasonal allergic rhinitis Category: Medical Plan: Continue Cetirizine 10 mg QD PRN and Aller-Karlo nasal spray BID PRN States that he has a pet dog and has no plans to get rid of it even though he is allergic supposedly to dogs (4) Attention deficit hyperactivity disorder (ADHD): Code(s): F90.9 - Attention-deficit hyperactivity disorder, unspecified type Category: Medical Qualifiers: Attention deficit-hyperactivity disorder type: unspecified Qualified Code(s): F90.9 - Attention-deficit hyperactivity disorder, unspecified type Plan: Continue Vyvanse 40 mg QD Follow up with neurology/psychiatry as scheduled (5) Hemorrhoids, external: Code(s): K64.4 - Residual hemorrhoidal skin tags Category: Medical Plan: He was referred to and seen by Dr. King back in August [address] King have recommended surgical excision but patient asked to hold off on surgery as he felt that his hemorrhoids were not as bad at the time of his consultation He was advised to just call surgery whenever he feels he is ready to have his hemorrhoids excised (6) Overweight (BMI 25.0-29.9): Code(s): E66.3 - Overweight Category: Medical Plan: Reinforced diet/exercise as tolerated/lose weight Plan Results of his labs done a few days ago reviewed and discussed with patient - his labs are mostly normal or within acceptable range To return in 6 months for his next annual physical examination Orders: Orders XR foot LT min 3V 02/24/25 M79.672 - Pain in left foot
--- OUTSIDE RECORDS SUMMARY | 2025-02-24 15:33 | XMS_ITS | Encounter Summary ---
Author Organization [facility] Address [address] [place] [address] Care Team Providers Care Bill Hiker Name Role Phone Pcp, No Primary Care Provider Unavailabl e Encounter Details Date Type Department Care Team (Late st Contact Info) Description 11/06/2024 Scanned Document [address] [place] [address] [phone] Provider, Generic Social History Tobacco Use Types [...] on filedocumented in this encounter Care Teams Bill Hiker Relationship Specialty Start Date End Date Pcp, No PCP - General General Medicine 09/29/24 documented as of this encounter
--- OUTSIDE RECORDS SUMMARY | 2025-02-24 15:33 | XMS_ITS | Clinical Summary ---
Author Organization [facility] Address [address] [place] [address] Care Team Providers Care Deckhand Fishing Vessel Name Role Phone Pcp, No Primary Care [...] age to complete this topic Insurance [facility] Care Teams Deckhand Fishing Vessel Relationship Specialty Start Date End Date Pcp, No PCP - General General Medicine 09/29/24
== END 2025-02-24 16:27 | disposition home or self-care (01) ==
LOC: HO.HMCH 15:31
PROVIDERS: PCP Internal Medicine; Visit Provider Internal Medicine
DX: M79.672 Pain in left foot (principal); G43.909 Migraine, unspecified, not intractable, without status migrainosus; J30.2 Other seasonal allergic rhinitis; F90.9 Attention-deficit hyperactivity disorder, unspecified type; K64.4 Residual hemorrhoidal skin tags; E66.3 Overweight

== ENCOUNTER → 2025-02-24 15:30 | Outpatient (BNVA) | payer OTHER, SELFPAY | PROVIDERS: PCP Internal Medicine; Visit Provider Internal Medicine | DX: M79.672 Pain in left foot (principal); G43.909 Migraine, unspecified, not intractable, without status migrainosus; J30.2 Other seasonal allergic rhinitis; F90.9 Attention-deficit hyperactivity disorder, unspecified type; K64.4 Residual hemorrhoidal skin tags; E66.3 Overweight; Z68.26 Body mass index [BMI] 26.0-26.9, adult; Z79.899 Other long term (current) drug therapy | CPT/HCPCS: 96127 ==

== ENCOUNTER 2025-04-09 15:17 | Outpatient (REF) | payer OTHER, SELFPAY ==
--- NOTE | ~2025-04-09 | XR_ITS ---
EXAMINATION: XR FOOT 3 OR MORE VIEWS LEFT HISTORY: M79.672 - Pain in left foot COMPARISON: There are no prior studies available for comparison. FINDINGS: Three views of the left foot are submitted. Osseous mineralization is normal. There is no fracture or dislocation. The joint spaces are preserved. The soft tissues are unremarkable. XR/XR foot LT min 3V IMPRESSION: Unremarkable examination of the left foot. Electronically signed by: Cole Castellon MD 04/10/2025 09:49 AM EDT
== END 2025-04-09 15:18 | disposition home or self-care (01) ==
LOC: HO.XRAY 15:17
PROVIDERS: Visit Provider Internal Medicine
DX: M79.652 Pain in left thigh (principal)
CPT/HCPCS: 73630

== ENCOUNTER → 2025-04-09 15:22 | Outpatient (BNV) | payer OTHER, SELFPAY | PROVIDERS: Visit Provider Radiology Diagnostic Radiology | DX: M79.672 Pain in left foot (principal) | CPT/HCPCS: 73630 ==

== ENCOUNTER 2025-06-17 16:58 | Outpatient (AMB) | payer OTHER, SELFPAY ==
[2025-06-17 17:00] VITALS: BP 110/64; PULSE 79; O2SAT 97; BMI 26.1
--- NOTE | 2025-06-17 17:00 | A.OFFPC_ITS ---
Vital Signs 06/17/25 17:00 Height 5 ft 11 in Weight 187 lb 4 oz BMI 26.1 BP 110/64 Blood Pressure Location Lt brachial Position Sitting Pulse 79 Pulse Source Pulse Oximeter Pulse Oximetry (%) 97 Oxygen Delivery Method Room Air Intake Visit Reasons: follow up Government Documents Librarian Required: No Accompanied by: Self / Same As Patient Allergies dog and cat Allergy (Mild, Uncoded 06/17/25 17:18) sneezing, iitdching skin seasonal Allergy (Unknown, Uncoded 06/17/25 17:18) watery eyes, sneezing. Medication List - Last Reconciled 06/17/25 by Feliz Caro MD cetirizine (Zyrtec) 10 mg PO DAILY PRN lisdexamfetamine (Vyvanse) 40 mg PO DAILY 30 days triamcinolone acetonide (Aller-Karlo) 1 spray intranasal BID Tobacco use date assessed: 06/17/25 Dental Screening Dental Screen Date: 06/17/25 Did you have a dental visit in the last 12 months?: Yes Did you have a dental problem in the last 6 months where you did not have access to dental care?: No Was dental information given to patient?: Patient has dentist HPI follow up HPI Details Patient comes in today for his follow-up visit States that he feels okay Recalls that he came down with some respiratory tract infection/bronchitis back in April 2025 and he had to go to a local walk-in clinic to seek treatment back then States that he was prescribed some on recalled antibiotics, which eventually cleared up his URI but notes that since then, he has had a recurrent nonproductive cough that often seems more pronounce in the morning States that his chest also feels slightly congested at times but he denies any shortness of breath He denies any fever, headaches or dizziness Denies any chest pains No nausea/vomiting, no abdominal pain No change in bowel habits noted States that his previous left foot pain has completely resolved and has not bothered him in over a couple of months now He was sent for x-rays of the left foot at the time and his foot x-rays came back negative [facility] Medical History (Updated 06/18/25 @ 05:50 by Feliz Caro MD) Asthma Bleeding hemorrhoids Overweight (BMI 25.0-29.9) Migraine Seasonal allergies Attention deficit hyperactivity disorder (ADHD) Surgical History No pertinent past surgical history Family History Other Mental health disorder Substance use disorder Social History Housing: House Alcohol intake: current Alcohol intake frequency: a few times a month Patient Tobacco Use Status: Never used Tobacco e-Cigarette/Vaping Use: Never Used Second Hand Smoke Exposure: No service: No Current occupational status: employed 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 1. Little interest or pleasure in doing things: not at all 2. Feeling down, depressed, or hopeless: not at all 3. Trouble falling or staying asleep, or sleeping too much: not at all 4. Feeling tired or having little energy: not at all 5. Poor appetite or overeating: not at all 6. Feeling bad about yourself - or that you are a failure or have let yourself or your family down: not at all 7. Trouble concentrating on things, such as reading the newspaper or watching television: not at all 8. Moving or speaking so slowly that other people could have noticed. Or the opposite - being so fidgety or restless that you have been moving around a lot more than usual: not at all 9. Thoughts that you would be better off or of hurting yourself in some way: not at all Total score: 0 Depression Screening Interpretation: Negative Depression Screening Done: Yes 12230 - PHQ-9 Billing: Yes Source: Developed by Drs. Cole Klein, Gela Castro, Sandro Aparicio and colleagues, with an educational shweta from [employer]. Thrive Questionnaire Date Thrive assessed: 06/17/25 I am a: Patient What is your living situation today?: I have a steady place to live Within the past 12 months, did the food you bought not last and you didn't have the money to get more?: Never true Within the past 12 months, did you worry whether your food would run out before you got money to buy more?: Never true Do you have trouble paying for medicines?: No Do you have trouble getting transportation to medical appointments?: No Do you have trouble paying your heating and electricity bill?: No Do you have trouble taking care of your child, family member or friend?: No Do you have trouble with day-to-day activities such as bathing, preparing meals, shopping, managing finances, etc.?: No Are you currently unemployed and looking for a job?: No Are you interested in more education?: No Please select the resources that you would like help with: None Currently or been in a relationship where the following occur: No concerns reported THRIVE Score: 0 AUDIT C Alcohol Use Questionnaire (AUDIT-C) 1. How often do you have a drink containing alcohol?: Monthly or less 2. How many drinks containing alcohol do you have on a typical day when you are drinking?: 1 or 2 3. How often do you have six or more drinks on one occasion?: Never Total Score: 1 Score Reviewed/Action Taken: Yes KHURRAM-7 AMB Questionnaire KHURRAM-7 Date KHURRAM - 7 assessed: 06/17/25 Feeling nervous, anxious, or on edge: 0 = Not at all Not being able to stop or control worryin = Not at all Worrying too much about different things: 0 = Not at all Trouble relaxin = Not at all Being so restless that it is hard to sit still: 0 = Not at all Becoming easily annoyed or irritable: 0 = Not at all Feeling afraid as if something awful might happen: 0 = Not at all Total KHURRAM-7 score (0-4 normal; 5-9 mild; 10-14 moderate; 15-21 severe): 0 Source: Developed by Drs. Cole Klein, Gela Castro, Sandro Aparicio and colleagues, with an educational shweta from [employer]. Review of Systems Const Denies chills, Denies fatigue, Denies fever(s) and Denies headache(s) ENT Denies dysphagia, Denies dizziness, Denies otalgia, Denies headache(s), Denies neck pain, Denies odynophagia and Denies sore throat Card Denies chest pain, Denies irregular heart rhythm, Denies palpitations and Denies dyspnea Resp Reports chest congestion (at times, mostly mild), Reports cough (recurrent, non-productive since his bout with URI in April 2025) and Denies dyspnea GI Denies abdominal pain, Denies constipation, Denies dysphagia, Denies heartburn, Denies diarrhea, Denies nausea, Denies odynophagia and Denies vomiting Denies difficulty urinating, Denies dysuria and Denies urinary frequency Musc Denies back pain, Denies arthralgias and Denies neck pain Skin/Breast Denies rash Neuro Denies dizziness, Denies headache(s) and Denies paresthesias Psych Denies difficulty concentrating (Rx helps a lot) Endo Denies fatigue and Denies palpitations Physical exam (Primary Care) Vital Signs: Last Vital Signs Pulse 79 06/17/25 17:00 BP 110/64 06/17/25 17:00 Pulse Ox 97 06/17/25 17:00 Oxygen Delivery Method Room Air 06/17/25 17:00 BMI result Body Mass Index 26.1 Tobacco/Smoking Status: Tobacco use Status Tobacco use date assessed 06/17/25 06/17/25 17:06 Patient Tobacco Use Status Never used Tobacco 06/17/25 17:06 e-Cigarette/Vaping Use Never Used 06/17/25 17:06 PHQ-9: PHQ-9 Score PHQ-9: Total score 0 06/17/25 17:28 Depression Screening Interpretation: Negative Thrive Assessment: Date of Thrive Assessment Date Thrive assessed 06/17/25 06/17/25 17:06 Currently or been in a relationship where the following occur: No concerns reported Const General: no acute distress and alert HENMT Ears: TM's normal bilaterally and EAC's normal Throat: Yes posterior oropharynx normal and Yes tonsils normal (no TP congestion) Neck Neck: Yes supple and No lymphadenopathy Thyroid: Thyroid normal Resp Other: (+) faint expiratory wheezing noted over both lung mackay on forced expiration (coughing) Cardio Rate: regular rate Rhythm: regular rhythm Heart sounds: no murmurs GI Palpation (GI): Soft to palpation and nontender Auscultation: normal bowel sounds General: Yes no CVA tenderness Back/Spine/Pelvis Back: no CVA tenderness Thoracic/Lumbar Spine: thoracic and lumbar spine normal to inspection Skin Rashes: no rashes Extrem General: Yes no clubbing, cyanosis or edema Coding Level of Care Code Est Pt Level 4 (47981) Diagnoses Migraine without status migrainosus, not intractable, unspecified migraine type G43.909 Migraine type: unspecified Status migrainosus presence: without status migrainosus Intractability: not intractable Mild persistent asthma without complication J45.30 Asthma severity: mild Asthma persistence: persistent Asthma complication type: uncomplicated Seasonal allergies J30.2 Attention deficit hyperactivity disorder (ADHD), unspecified ADHD type F90.9 Attention deficit-hyperactivity disorder type: unspecified Hemorrhoids, external K64.4 Overweight (BMI 25.0-29.9) E66.3 Additional Codes PHQ-9 - 48585 - PHQ-9 Billing: Yes ([id number]) Assessment & Plan Assessment & Plan (1) Migraine: Code(s): G43.909 - Migraine, unspecified, not intractable, without status migrainosus Category: Medical Qualifiers: Migraine type: unspecified Status migrainosus presence: without status migrainosus Intractability: not intractable Qualified Code(s): G43.909 - Migraine, unspecified, not intractable, without status migrainosus Plan: Stable/controlled Reinforced avoidance of any potential migraine triggers Follow up with neurology as scheduled (2) Asthma: Code(s): J45.909 - Unspecified asthma, uncomplicated Category: Medical Qualifiers: Asthma severity: mild Asthma persistence: persistent Asthma complication type: uncomplicated Qualified Code(s): J45.30 - Mild persistent asthma, uncomplicated Plan: Patient is advised that his rece nt recurrent cough most likely due to his asthma, which does not appear to be adequately controlled at present Patient reports (+) history of asthma but states that he has not needed to use any rescue inhaler in several years now Will go ahead and start him back on albuterol HFA 1-2 inhalations every 6 hours as needed have advised patient that this should help with his recurrent cough and over the next 4-6 weeks, if he still needs to use his rescue inhaler regularly, then we should consider starting him again on a controller inhaler for his asthma On the other hand, if he no longer needs to use his rescue inhaler regularly in 4-6 weeks, then he can just stay on a rescue inhaler alone for PRN use (3) Seasonal allergies: Code(s): J30.2 - Other seasonal allergic rhinitis Category: Medical Plan: Continue Cetirizine 10 mg QD PRN and Aller-Karlo nasal spray BID PRN States that he has a pet dog and has no plans to get rid of it even though he is allergic supposedly to dogs (4) Attention deficit hyperactivity disorder (ADHD): Code(s): F90.9 - Attention-deficit hyperactivity disorder, unspecified type Category: Medical Qualifiers: Attention deficit-hyperactivity disorder type: unspecified Qualified Code(s): F90.9 - Attention-deficit hyperactivity disorder, unspecified type Plan: Continue Vyvanse 40 mg QD Follow up with neurology/psychiatry as scheduled (5) Hemorrhoids, external: Code(s): K64.4 - Residual hemorrhoidal skin tags Category: Medical Plan: He was referred to and seen by Dr. King back in August [address] King have recommended surgical excision but patient asked to hold off on surgery as he felt that his hemorrhoids were not as bad at the time of his consultation He was advised to just call surgery whenever he feels he is ready to have his hemorrhoids excised - patient states that he currently has had no issues with his hemorrhoids (6) Overweight (BMI 25.0-29.9): Code(s): E66.3 - Overweight Category: Medical Plan: Reinforced diet/exercise as tolerated/lose weight Plan To return in a few months for his next annual physical examination Orders: Orders Complete Blood Count Auto Diff 2 Months D64.9 - Anemia, unspecified Lipid Panel 2 Months E78.00 - Pure hypercholesterolemia, unspecified TSH reflex Free T4 2 Months E78.00 - Pure hypercholesterolemia, unspecified UA CC w/rflx Micro + Cult 2 Months R30.0 - Dysuria Vitamin D 25-OH Total 2 Months E55.9 - Vitamin D deficiency, unspecified Comprehensive [place]. Panel Fast 2 Months E78.00 - Pure hypercholesterolemia, unspecified Medications: New albuterol sulfate 90 mcg/actuation (Ventolin HFA) 2 puffs inhalation Q6H PRN 8.5 grams 5RF shortness of breath or wheezing 30 days
== END 2025-06-17 17:33 | disposition home or self-care (01) ==
LOC: HO.HMCH 16:59
PROVIDERS: PCP Internal Medicine; Visit Provider Internal Medicine
DX: G43.909 Migraine, unspecified, not intractable, without status migrainosus (principal); J45.30 Mild persistent asthma, uncomplicated; J30.2 Other seasonal allergic rhinitis; F90.9 Attention-deficit hyperactivity disorder, unspecified type; K64.4 Residual hemorrhoidal skin tags; E66.3 Overweight

== ENCOUNTER → 2025-06-17 16:58 | Outpatient (BNVA) | payer OTHER, SELFPAY | PROVIDERS: PCP Internal Medicine; Visit Provider Internal Medicine | DX: J45.30 Mild persistent asthma, uncomplicated (principal); G43.909 Migraine, unspecified, not intractable, without status migrainosus; J30.2 Other seasonal allergic rhinitis; F90.9 Attention-deficit hyperactivity disorder, unspecified type; K64.4 Residual hemorrhoidal skin tags; E66.3 Overweight; D64.9 Anemia, unspecified; E78.00 Pure hypercholesterolemia, unspecified; R30.0 Dysuria; E55.9 Vitamin D deficiency, unspecified; Z68.26 Body mass index [BMI] 26.0-26.9, adult | CPT/HCPCS: 96127 ==

== ENCOUNTER 2025-09-09 15:53 | Outpatient (REF) | payer OTHER, SELFPAY ==
[2025-09-09 16:04] LABS: MANUAL DIFF FLAG NO
[2025-09-09 17:18] LABS: Hematocrit 42.0 % (42.0-52.0); Hemoglobin 14.1 g/dl (14.0-18.0); Imm Gran Abs Auto 0.01 X10*3/uL (0.00-0.03); Imm Gran Pct Auto 0.3 % (0.0-0.4); Lymphocytes Absolute Auto 1.0 X10*3/uL (1.2-4.9); Mean Corpuscular HGB Conc 33.6 g/dl (31.0-36.0); Mean Corpuscular Hemoglobin 31.4 pg (27.0-33.0); Mean Corpuscular Volume 93.5 fL (80.0-98.0); NRBC Abs Auto 0.000 X10*3/uL (0.0-0.012); NRBC Pct Auto 0.0 /100WBC (0.0-0.2); Platelet Count 217 X10*3/uL (160-400); Red Blood Count 4.49 X10*6/uL (4.60-5.80); White Blood Count 3.5 X10*3/uL (4.8-10.8)
[2025-09-09 17:26] LABS: Appearance Urine Clear; Glucose Urine UA Negative (Negative); PH 5.5 (5.0-9.0); Specific Gravity - Urine 1.025 (1.005-1.025)
[2025-09-09 17:45] LABS: Alanine Aminotransferase 24 U/L (0-40); Albumin Level 5.0 g/dL (3.5-5.0); Alkaline Phosphatase 67 U/L (39-117); Anion Gap 11 (12-20); Aspartate Amino Transferase 25 U/L (5-37); Blood Urea Nitrogen 13 mg/dL (9-16); Calcium 9.5 mg/dL (8.4-10.2); Carbon Dioxide 29 mmol/L (22-29); Chloride 108 mmol/L (96-108); Cholesterol 166 mg/dL (<200); Estimated Glomerular Filt Rate > 60; HDL Cholesterol 50 mg/dL (>40); Potassium 4.3 mmol/L (3.3-5.1); Sodium 144 mmol/L (135-145); Total Protein 7.5 g/dL (6.5-8.0); Triglycerides 89 mg/dL (<150)
--- OUTSIDE RECORDS SUMMARY | 2025-09-09 18:21 | XMS_ITS | Encounter Summary ---
Author Organization [facility] Address [address] [place] [address] Care Team Providers Care Supply Officer Name Role Phone Pcp, No Primary Care Provider Unavailabl e Encounter Details Date Type Department Care Team (Late st Contact Info) Description 11/06/2024 Scanned Document [address] [place] [address] [phone] Provider, Generic Social History Tobacco Use Types [...] on filedocumented in this encounter Care Teams Supply Officer Relationship Specialty Start Date End Date Pcp, No PCP - General General Medicine 09/29/24 documented as of this encounter
--- OUTSIDE RECORDS SUMMARY | 2025-09-09 18:21 | XMS_ITS | Clinical Summary ---
Author Organization [facility] Address [address] [place] [address] Care Team Providers Care Credit Clerk Name Role Phone Pcp, No Primary Care [...] 56 11/06/2024 10:34 AM EST Temperature 36.4 C (97.5 F) 11/06/2024 10:34 AM EST Respiratory Rate 16 11/06/2024 10:34 AM EST [...] - 19+ 3-dose series) 01/16/2008 Influenza Vaccine 06/06/2025 11/03/2014, 07/25/2013 COVID-19 Vaccine ( - 2023-2 5 season) 2025 HPV Vaccines (No Doses Required) Completed Pneumococcal Vaccine: Pediatric (0-5 Years) and At-Risk Patients (6 to 49 Years) Aged Out No longer eligible b ased on patient's age to complete this topic Insurance [facility] Care Teams Credit Clerk Relationship Specialty Start Date End Date Pcp, No PCP - General General Medicine 09/29/24
== END 2025-09-09 15:54 | disposition home or self-care (01) ==
LOC: HO.LAB 15:53
PROVIDERS: PCP Internal Medicine; Visit Provider Internal Medicine
DX: R30.0 Dysuria (principal); D64.9 Anemia, unspecified; E78.00 Pure hypercholesterolemia, unspecified; E55.9 Vitamin D deficiency, unspecified
CPT/HCPCS: 36415; 80053; 80061; 81003; 82306; 84443; 85025

== ENCOUNTER 2025-09-16 16:25 | Outpatient (AMB) | payer OTHER, SELFPAY ==
--- NOTE | 2025-09-16 16:31 | MHC.PC.OV ---
Vital Signs 09/16/25 16:32 Height 5 ft 11 in Weight 193 lb BMI 26.9 BP 112/70 Blood Pressure Location Lt brachial Position Sitting Pulse 77 Pulse Source Pulse Oximeter Pulse Oximetry (%) 97 Oxygen Delivery Method Room Air Intake Visit Reasons: pe Stitcher Feeder Required: No Accompanied by: Self / Same As Patient Allergies dog and cat Allergy (Mild, Uncoded 09/16/25 16:49) sneezing, iitdching skin seasonal Allergy (Unknown, Uncoded 09/16/25 16:49) watery eyes, sneezing. Medication List - Last Reconciled 09/16/25 by Feliz Caro MD albuterol sulfate 90 mcg/actuation (Ventolin HFA) 2 puffs inhalation Q6H PRN 30 days cetirizine (Zyrtec) 10 mg PO DAILY PRN lisdexamfetamine (Vyvanse) 40 mg PO DAILY 30 days triamcinolone acetonide (Aller-Karlo) 1 spray intranasal BID Tobacco use date assessed: 09/16/25 Dental Screening Dental Screen Date: 09/16/25 Did you have a dental visit in the last 12 months?: Yes Did you have a dental problem in the last 6 months where you did not have access to dental care?: No Was dental information given to patient?: Patient has dentist HPI pe HPI Details Patient comes in today for his annual physical examination States that he feels okay He denies any headaches or dizziness Denies any chest pains, no SOB No nausea/vomiting, no abdominal pain No change in bowel habits noted He denies any acute urinary symptoms States that he still has some issues with his hemorrhoids but they have not been bothering him as much as they used to recently He had his follow up labs done last week - to discuss his results [facility] Medical History Asthma Bleeding hemorrhoids Overweight (BMI 25.0-29.9) Migraine Seasonal allergies Attention deficit hyperactivity disorder (ADHD) Surgical History No pertinent past surgical history Family History Other Mental health disorder Substance use disorder Social History Housing: House Alcohol intake: current Alcohol intake frequency: a few times a month Patient Tobacco Use Status: Never used Tobacco e-Cigarette/Vaping Use: Never Used Second Hand Smoke Exposure: No service: No Current occupational status: employed 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 1. Little interest or pleasure in doing things: not at all 2. Feeling down, depressed, or hopeless: not at all 3. Trouble falling or staying asleep, or sleeping too much: not at all 4. Feeling tired or having little energy: not at all 5. Poor appetite or overeating: not at all 6. Feeling bad about yourself - or that you are a failure or have let yourself or your family down: not at all 7. Trouble concentrating on things, such as reading the newspaper or watching television: not at all 8. Moving or speaking so slowly that other people could have noticed. Or the opposite - being so fidgety or restless that you have been moving around a lot more than usual: not at all 9. Thoughts that you would be better off or of hurting yourself in some way: not at all Total score: 0 Depression Screening Interpretation: Negative Depression Screening Done: Yes 90982 - PHQ-9 Billing: Yes Source: Developed by Drs. Cole Klein, Gela Castro, Sandro Aparicio and colleagues, with an educational shweta from [employer]. Thrive Questionnaire Date Thrive assessed: 09/16/25 I am a: Patient What is your living situation today?: I have a steady place to live Within the past 12 months, did the food you bought not last and you didn't have the money to get more?: Never true Within the past 12 months, did you worry whether your food would run out before you got money to buy more?: Never true Do you have trouble paying for medicines?: No Do you have trouble getting transportation to medical appointments?: No Do you have trouble paying your heating and electricity bill?: No Do you have trouble taking care of your child, family member or friend?: No Do you have trouble with day-to-day activities such as bathing, preparing meals, shopping, managing finances, etc.?: No Are you currently unemployed and looking for a job?: No Are you interested in more education?: No Please select the resources that you would like help with: None Currently or been in a relationship where the following occur: No concerns reported THRIVE Score: 0 AUDIT C Alcohol Use Questionnaire (AUDIT-C) 1. How often do you have a drink containing alcohol?: Monthly or less 2. How many drinks containing alcohol do you have on a typical day when you are drinking?: 1 or 2 3. How often do you have six or more drinks on one occasion?: Never Total Score: 1 Score Reviewed/Action Taken: Yes KHURRAM-7 AMB Questionnaire KHURRAM-7 Date KHURRAM - 7 assessed: 09/16/25 Feeling nervous, anxious, or on edge: 0 = Not at all Not being able to stop or control worryin = Not at all Worrying too much about different things: 0 = Not at all Trouble relaxin = Not at all Being so restless that it is hard to sit still: 0 = Not at all Becoming easily annoyed or irritable: 0 = Not at all Feeling afraid as if something awful might happen: 0 = Not at all Total KHURRAM-7 score (0-4 normal; 5-9 mild; 10-14 moderate; 15-21 severe): 0 Source: Developed by Drs. Cole Klein, Gela Castro, Sandro Aparicio and colleagues, with an educational shweta from [employer]. Review of Systems Const Denies chills, Denies fatigue, Denies fever(s), Denies headache(s), Denies malaise and Denies weakness Eyes Denies blurry vision, Denies change in vision, Denies irritation and Denies itchy eyes ENT Denies dysphagia, Denies dizziness, Denies otalgia, Denies headache(s), Denies nasal congestion, Denies neck pain, Denies odynophagia, Denies tinnitus and Denies sore throat Card Denies rapid heart rate, Denies irregular heart rhythm, Denies palpitations and Denies dyspnea Resp Denies chest congestion, Denies cough, Denies dyspnea and Denies wheezing GI Denies abdominal pain, Denies bloating, Denies constipation, Denies dysphagia, Denies heartburn, Denies diarrhea, Denies nausea, Denies odynophagia and Denies vomiting Denies hematuria, Denies difficulty urinating, Denies dysuria, Denies urinary frequency and Denies urinary urgency Musc Denies back pain, Denies arthralgias, Denies joint swelling, Denies muscle weakness and Denies neck pain Skin/Breast Denies change in pigmentation, Denies lesions, Denies rash and Denies unusual bruising Neuro Denies dizziness, Denies headache(s), Denies paresthesias and Denies weakness Endo Denies fatigue and Denies palpitations Aller/Immun Denies itchy eyes and Denies wheezing Physical exam (Primary Care) Vital Signs: Last Vital Signs Pulse 77 09/16/25 16:32 BP 112/70 09/16/25 16:32 Pulse Ox 97 09/16/25 16:32 Oxygen Delivery Method Room Air 09/16/25 16:32 BMI result Body Mass Index 26.9 Tobacco/Smoking Status: Tobacco use Status Tobacco use date assessed 09/16/25 09/16/25 16:33 Patient Tobacco Use Status Never used Tobacco 09/16/25 16:33 e-Cigarette/Vaping Use Never Used 09/16/25 16:33 PHQ-9: PHQ-9 Score PHQ-9: Total score 0 09/16/25 16:33 Depression Screening Interpretation: Negative Thrive Assessment: Date of Thrive Assessment Date Thrive assessed 09/16/25 09/16/25 16:33 Currently or been in a relationship where the following occur: No concerns reported Const General: no acute distress, alert and awake Orientation/consciousness: patient oriented x3 [facility] Head: Yes normocephalic and Yes atraumatic Ears: external ears normal, TM's normal bilaterally and EAC's normal General nose exam: No nasal discharge present Face and sinus: Yes normal facial exam and Yes sinuses nontender Teeth and gingiva: dentition normal Throat: Yes posterior oropharynx normal and Yes tonsils normal (no TP congestion) Eyes Eyelids: Yes eyelids normal Conjunctivae: conjunctivae normal Pupils: Equal, round and reactive pupils present EOM: EOMs intact bilaterally Neck Neck: Yes no lymphadenopathy and Yes supple Thyroid: Thyroid normal Resp Auscultation: clear to auscultation bilaterally, no rales and no wheezes Cardio Rate: regular rate Rhythm: regular rhythm Heart sounds: no murmurs GI Palpation (GI): Soft to palpation, nontender and No hepatosplenomegaly present Auscultation: normal bowel sounds General: Yes no CVA tenderness Back/Spine/Pelvis Back: no CVA tenderness Thoracic/Lumbar Spine: thoracic and lumbar spine normal to inspection Skin Lesions: no lesions Rashes: no rashes Neuro General: patient oriented x3, moves all extremities, no focal motor deficits and CN's II-XI intact bilaterally Cranial nerves: Yes Equal, round and reactive pupils present Cognition (Neuro): normal cognition Gait exam (Neuro): Normal gait present Extrem General: Yes no clubbing, cyanosis or edema Results Reviewed Results Reviewed: Laboratory Tests 09/09/25 09/09/25 16:01 16:02 WBC 3.5 L Hgb 14.1 Hct 42.0 Plt Count 217 Sodium 144 Potassium 4.3 Creatinine 1.06 Estimated GFR > 60 Fasting Glucose 74 Calcium 9.5 AST 25 ALT 24 Triglycerides 89 Cholesterol 166 LDL Cholesterol, Calc 99 HDL Cholesterol 50 25-OH Vitamin D Total 34.8 TSH 1.12 Ur Specific [place] 1.025 Urine Protein Negative Urine Glucose (UA) Negative Urine Blood Negative Urine Nitrite Negative Ur Leukocyte Esterase Negative Coding Level of Care Code Est Pt Prev Care 18-39y([id number]) Diagnoses Annual physical exam Z00.00 Migraine without status migrainosus, not intractable, unspecified migraine type G43.909 Migraine type: unspecified Status migrainosus presence: without status migrainosus Intractability: not intractable Mild persistent asthma without complication J45.30 Asthma severity: mild Asthma persistence: persistent Asthma complication type: uncomplicated Seasonal allergies J30.2 Hemorrhoids, external K64.4 Attention deficit hyperactivity disorder (ADHD), unspecified ADHD type F90.9 Attention deficit-hyperactivity disorder type: unspecified Overweight (BMI 25.0-29.9) E66.3 Additional Codes PHQ-9 - 60206 - PHQ-9 Billing: Yes ([id number]) Assessment & Plan Assessment & Plan (1) Annual physical exam: Code(s): Z00.00 - Encounter for general adult medical examination without abnormal findings Category: Medical Plan: Results of his labs done last week reviewed and discussed with patient (2) Migraine: Code(s): G43.909 - Migraine, unspecified, not intractable, without status migrainosus Category: Medical Qualifiers: Migraine type: unspecified Status migrainosus presence: without status migrainosus Intractability: not intractable Qualified Code(s): G43.909 - Migraine, unspecified, not intractable, without status migrainosus Plan: Stable/controlled Reinforced avoidance of any potential migraine triggers Follow up with neurology as scheduled (3) Asthma: Code(s): J45.909 - Unspecified asthma, uncomplicated Category: Medical Qualifiers: Asthma severity: mild Asthma persistence: persistent Asthma complication type: uncomplicated Qualified Code(s): J45.30 - Mild persistent asthma, uncomplicated Plan: Controlled Continue Albuterol HFA 1 to 2 inhalations Q 6 hours PRN (4) Seasonal allergies: Code(s): J30.2 - Other seasonal allergic rhinitis Category: Medical Plan: Continue Cetirizine 10 mg QD PRN and Aller-Karol nasal spray BID PRN States that he has a pet dog and has no plans to get rid of it even though he is supposedly allergic to dogs (5) Hemorrhoids, external: Code(s): K64.4 - Residual hemorrhoidal skin tags Category: Medical Plan: Patient states that he has not had any significant issues with his hemorrhoids lately He was recommended to undergo surgical excision of his hemorrhoids by Dr. King earlier this year but patient asked to hold off on surgery as he felt that his hemorrhoids were not as bad at the time of his consultation He was advised to just call surgery whenever he feels he is ready to undergo hemorrhoid surgery (6) Attention deficit hyperactivity disorder (ADHD): Code(s): F90.9 - Attention-deficit hyperactivity disorder, unspecified type Category: Medical Qualifiers: Attention deficit-hyperactivity disorder type: unspecified Qualified Code(s): F90.9 - Attention-deficit hyperactivity disorder, unspecified type Plan: Continue Vyvanse 40 mg QD Follow up with neurology/psychiatry as scheduled (7) Overweight (BMI 25.0-29.9): Code(s): E66.3 - Overweight Category: Medical Plan: Reinforced diet/exercise as tolerated/lose weight Plan Follow up in 6 months
[2025-09-16 16:32] VITALS: BP 112/70; PULSE 77; O2SAT 97; BMI 26.9
--- OUTSIDE RECORDS SUMMARY | 2025-09-16 17:28 | XMS_ITS | Clinical Summary ---
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
--- OUTSIDE RECORDS SUMMARY | 2025-09-16 17:28 | XMS_ITS | Encounter Summary ---
Author Organization [facility] Address [address] [place] [address] Care Team Providers Care Cans Vacuum Tester Name Role Phone Pcp, No Primary Care Provider Unavailabl e Encounter Details Date Type Department Care Team (Late st Contact Info) Description 11/06/2024 Scanned Document [address] [place] [address] [phone] Provider, Generic Social History Tobacco Use Types [...] on filedocumented in this encounter Care Teams Cans Vacuum Tester Relationship Specialty Start Date End Date Pcp, No PCP - General General Medicine 09/29/24 documented as of this encounter
== END 2025-09-16 17:04 | disposition home or self-care (01) ==
LOC: HO.HMCH 16:26
PROVIDERS: PCP Internal Medicine; Visit Provider Internal Medicine
DX: Z00.00 Encounter for general adult medical examination without abnormal findings (principal); G43.909 Migraine, unspecified, not intractable, without status migrainosus; J45.30 Mild persistent asthma, uncomplicated; J30.2 Other seasonal allergic rhinitis; K64.4 Residual hemorrhoidal skin tags; F90.9 Attention-deficit hyperactivity disorder, unspecified type; E66.3 Overweight

== ENCOUNTER → 2025-09-16 16:25 | Outpatient (BNVA) | payer OTHER, SELFPAY | PROVIDERS: PCP Internal Medicine; Visit Provider Internal Medicine | DX: Z00.00 Encounter for general adult medical examination without abnormal findings (principal); G43.909 Migraine, unspecified, not intractable, without status migrainosus; J45.30 Mild persistent asthma, uncomplicated; J30.2 Other seasonal allergic rhinitis; K64.4 Residual hemorrhoidal skin tags; F90.9 Attention-deficit hyperactivity disorder, unspecified type; E66.3 Overweight; Z68.26 Body mass index [BMI] 26.0-26.9, adult | CPT/HCPCS: 96127 ==